=== PATIENT | female | born 1950 | race Caucasian/White ===

== ENCOUNTER 2019-12-29 10:29 | Emergency (ER) | payer OTHER ==
[~2019-12-29] VITALS: Ht 162.6 cm; Wt 72.6 kg
[2019-12-29 10:29] VITALS: BP_SYST 158
[2019-12-29] MEDS ORDERED: NS 1000 ML IV.SOLN IV ONE (10:45)
[2019-12-29 11:35] LABS: BASOPHILS % (AUTO) 0.2 % (0.0-2.0); EOSINOPHILS % (AUTO) 0.1 % (0.0-4.0); HEMATOCRIT 54.2 % (36-48); HEMOGLOBIN 17.5 g/dL (12.0-16.0); LYMPHOCYTES # (AUTO) 0.9 K/uL (1.0-5.5); LYMPHOCYTES % (AUTO) 7.3 % (20.5-51.5); MEAN CORPUSCULAR HEMOGLOBIN 29 pg (27-31); MEAN CORPUSCULAR HGB CONC 32 % (32-36); MEAN CORPUSCULAR VOLUME 90 fL (79.0-98.0); MONOCYTES # (AUTO) 0.6 K/uL (0.0-1.0); MONOCYTES % (AUTO) 4.9 % (1.7-9.3); NEUTROPHILS # (AUTO) 10.5 K/uL (1.8-7.7); NEUTROPHILS % (AUTO) 87.5 % (40.0-70.0); PLATELET COUNT (AUTO) 300 K/uL (130-430); RED BLOOD CELL COUNT(AUTO) 6.01 MIL/uL (4.2-6.2); RED CELL DISTRIBUTION WIDTH 14.1 % (9.0-15.0)
[2019-12-29] MEDS ORDERED: NITROGLYCERIN 1 INCH (GM) OINT. TP ONE (11:45)
[2019-12-29] MEDS ORDERED: ASPIRIN 325 MG TABLET PO ONE (11:45)
[2019-12-29] MEDS ORDERED: ASPIRIN 325 MG TABLET (ECOTRIN) PO ONE (11:49)
[2019-12-29] MEDS ORDERED: NITROGLYCERIN 1 INCH (GM) OINT. ONE (11:50)
[2019-12-29 12:00] VITALS: BP_SYST 165
[2019-12-29] MEDS ORDERED: HEPARIN SODIUM,PORCINE 5000 UNITS/ML VIAL IVP ONE (12:00)
[2019-12-29] MEDS ORDERED: HEPARIN SODIUM,PORCINE 5000 UNITS/ML VIAL ONE (12:07)
[2019-12-29 12:11] LABS: CALCIUM 10.7 mg/dL (8.4-11.0); CREATININE 1.25 mg/dL (0.55-1.30)
[2019-12-29 12:13] LABS: ALBUMIN 3.4 g/dL (3.4-4.8)
[2019-12-29 12:25] LABS: TOTAL BILIRUBIN 0.6 mg/dL (0.0-1.0)
[2019-12-29 12:58] LABS: INR 1.3 (0.8-1.2); PROTHROMBIN TIME 12.7 SECS (9.5-12.5)
== END 2019-12-29 12:00 | disposition short-term general hospital (02) ==
LOC: SED 10:29
DX: I21.3 ST elevation (STEMI) myocardial infarction of unspecified site (principal); E11.9 Type 2 diabetes mellitus without complications
CPT/HCPCS: 36415; 36600; 71045; 80053; 82803; 82962; 83605; 84484; 85025; 85610; 85730; 87040; 93005; 96374; 99285; J1644; J7030

== ENCOUNTER 2020-08-14 10:29 | Emergency (ER) | payer OTHER ==
[~2020-08-14] VITALS: Ht 160 cm; Wt 77.1 kg
[2020-08-14 10:30] VITALS: BP_SYST 153
--- NOTE | 2020-08-14 10:34 | NUR ---
Patient to ER bed 3 to gown for evaluation. Side rails up. Report given to ARLENE NOLAN.
--- NOTE | 2020-08-14 10:35 | NUR ---
Patient presented to ER C/O generalized weakness. Patient BIB BLS to ER, afebrile, skin pink & warm, denies N/V/D, pain 05/27 Patient states she became weak, lowered self to floor at home then unable to get up. PT called 911. Patient reports bilat knee pain, Hx arthritis pain.
--- NOTE | 2020-08-14 11:05 | NUR ---
[place] [facility] [place]
[2020-08-14] MEDS ORDERED: NACL 0.9% 500 ML IV ONE (11:30)
[2020-08-14] MEDS ORDERED: MORPHINE 2 MG/ML INJ. SYRINGE IVP ONE (11:30)
--- NOTE | 2020-08-14 12:10 | NUR ---
Patient transported to radiology AMBULATORY, accompanied by STAFF.
[2020-08-14] MEDS ORDERED: MORPHINE 2 MG/ML INJ. SYRINGE ONE (12:14)
[2020-08-14 12:16] LABS: CALCIUM 9.4 mg/dL (8.4-11.0); CREATININE 0.68 mg/dL (0.55-1.30); POTASSIUM 4.4 mmol/L (3.5-5.1)
[2020-08-14 12:21] LABS: ALBUMIN 3.8 g/dL (3.4-4.8); TOTAL BILIRUBIN 0.6 mg/dL (0.0-1.0)
--- NOTE | 2020-08-14 12:35 | NUR ---
Returned from radiology, back to [facility] ER 3.
--- NOTE | 2020-08-14 12:36 | NUR ---
# 22 gauge angiocath placed to LEFT HAND . Use of asceptic technique. Opsite placed over site. Blood return noted. Blood for lab drawn from site. Flushed with 10 cc of normal saline. No evidence of infiltration noted. Patient tolerated well.
[2020-08-14 12:46] LABS: BASOPHILS # (AUTO) 0.1 K/uL (0.0-0.2); BASOPHILS % (AUTO) 0.9 % (0.0-2.0); EOSINOPHILS # (AUTO) 0.2 K/uL (0.0-0.4); EOSINOPHILS % (AUTO) 1.6 % (0.0-4.0); HEMOGLOBIN 16.5 g/dL (12.0-16.0); LYMPHOCYTES # (AUTO) 2.6 K/uL (1.0-5.5); LYMPHOCYTES % (AUTO) 19.1 % (20.5-51.5); MEAN CORPUSCULAR HEMOGLOBIN 28 pg (27-31); MEAN CORPUSCULAR HGB CONC 33 % (32-36); MEAN CORPUSCULAR VOLUME 84 fL (79.0-98.0); MONOCYTES # (AUTO) 0.8 K/uL (0.0-1.0); MONOCYTES % (AUTO) 5.8 % (1.7-9.3); NEUTROPHILS % (AUTO) 72.6 % (40.0-70.0); PLATELET COUNT (AUTO) 285 K/uL (130-430); RED BLOOD CELL COUNT(AUTO) 5.98 MIL/uL (4.2-6.2); RED CELL DISTRIBUTION WIDTH 14.8 % (9.0-15.0); WHITE BLOOD COUNT (AUTO) 13.8 K/uL (4.8-10.8)
--- NOTE | 2020-08-14 13:50 | NUR ---
Patient assisted to bathroom for toileting.
--- NOTE | 2020-08-14 14:39 | NUR ---
Patient A&Ox4, ambulatory to bathroom
[2020-08-14 15:03] VITALS: BP_SYST 138
--- NOTE | 2020-08-14 15:03 | NUR ---
Patient given written and verbal discharge instructions and verbalizes understanding. ER MD discussed with patient the results and treatment provided. Patient in stable condition. ID arm band removed. IV catheter removed intact and dressing applied, no active bleeding. Rx of MOTRIN, TRAMADOL given. Patient educated on pain management and to follow up with PMD. Pain Scale 0/10. Opportunity for questions provided and answered. Medication side effect fact sheet provided.
== END 2020-08-14 15:02 | disposition home or self-care (01) ==
LOC: SED 10:29
DX: M25.561 Pain in right knee (principal); M25.562 Pain in left knee; M54.5 Low back pain; E11.9 Type 2 diabetes mellitus without complications
CPT/HCPCS: 36415; 72131; 73564; 76376; 80053; 82962; 85025; 96361; 96374; 99285; J7040; J2270